=== PATIENT | female | born 1980 | race African-American/Black ===

== ENCOUNTER 2016-03-02 18:27 | Emergency (ER) | payer MEDICAID, OTHER ==
[~2016-03-02] VITALS: Ht 172.7 cm; Wt 100.0 kg
[~2016-03-02 18:27] MED LIST: OMEP20TA PO
[2016-03-02 18:29] VITALS: BP 151/74; PULSE 70; RESP 16; TEMP 98.2; O2SAT 100
[2016-03-02] MEDS ORDERED: PANT20 PO (18:37)
[2016-03-02] MEDS ORDERED: IBUP-232 PO (18:51)
[2016-03-02] MEDS ORDERED: ORPH100T99 PO (18:51)
--- NOTE | 2016-03-02 18:57 | PD ---
HPI Chief Complaint: Back/ Neck Pain or Injury Time Seen by Provider: 18:40 Travel History International Travel<30 days: No Contact w/Intl Traveler<30days: No Traveled to known affect area: No History of Present Illness HPI 35-year-old Afro-[place] female coming in with four-day history of right-sided posterior shoulder and neck discomfort. Patient states it started 4 days ago and has gotten progressively worse. She been trying heat and Tylenol with transient improvement. Patient denies any specific injury. Pain is 5/10, and feels like an ache with occasional spasm. She denies any radicular symptoms in the right arm or hand. He has no weakness. Patient denies fever, chills, or rash. She has no known drug allergies. PFSH Past Medical History Anemia: Yes Diminished Hearing: No Tetanus Vaccination: < 5 Years Influenza Vaccination: No ?: Not LMP: 02/28/15 : 4 Para: 2 Miscarriage: 1 Dilation and Curettage (D&C): Yes Past Surgical History Section: Yes (X 3) Gynecologic Surgery: Yes (C-SECT X 2) Other Surgery: Yes (anal fissure surgery) Social History Alcohol Use: No Tobacco Use: No Substance Use: No Allergies-Medications (Allergen,Severity, Reaction): Coded Allergies: No Known Allergies (Verified , 03/02/16) Reported Meds & Prescriptions Reported Meds & Active Scripts Active Reported Protonix (Pantoprazole Sodium) 20 Mg Tab 20 Mg PO DAILY Review of Systems Except as stated in HPI: all other systems reviewed are Neg General / Constitutional: No: Fever Eyes: No: Visual changes HENT: No: Headaches Cardiovascular: No: Chest Pain or Discomfort Respiratory: No: Shortness of Breath Gastrointestinal: No: Abdominal Pain Genitourinary: No: Dysuria Musculoskeletal: Positive: Myalgias, Pain (see history present illness.) Skin: No Rash Neurologic: No: Weakness Psychiatric: No: Depression Endocrine: No: Polydipsia Hematologic/Lymphatic: No: Easy Bruising Physical Exam Narrative GENERAL: Patient appears in no acute distress. SKIN: Warm and dry. HEAD: Atraumatic. Normocephalic. EYES: Pupils equal and round. No scleral icterus. No injection or drainage. ENT: No nasal bleeding or discharge. Mucous membranes pink and moist. Pharynx is normal. NECK: Trachea midline. No JVD. Patient has soft tissue tenderness along the right paraspinous muscles and scalenes. This extends into the right upper trapezius and medial scapularis. There is no bony tenderness or step-off. Range of motion is slightly limited by discomfort. CARDIOVASCULAR: Regular rate and rhythm. No murmurs gallops or rubs. RESPIRATORY: No accessory muscle use. Clear to auscultation. Breath sounds equal bilaterally. MUSCULOSKELETAL: Extremities without clubbing, cyanosis, or edema. No obvious deformities. Right upper extremity is of full range of motion bilaterally with no weakness appreciated. NEUROLOGICAL: Awake and alert. No obvious cranial nerve deficits. Motor grossly within normal limits. Five out of 5 muscle strength in the arms and legs. Normal speech. PSYCHIATRIC: Appropriate mood and affect; insight and judgment normal. Data Data Last Documented VS Vital Signs Date Time Temp Pulse Resp B/P Pulse Ox O2 Delivery O2 Flow Rate FiO2 03/02/16 18:29 98.2 70 16 151/74 100 Room Air MDM Medical Decision Making Medical Screen Exam Complete: Yes Emergency Medical Condition: Yes Differential Diagnosis Spasmodic torticollis. Muscle spasm. Cervical strain. Narrative Course Patient is medically stable at time of exam. Radiographic imaging is not felt warranted based on my history and physical. Patient will be treated conservatively with ibuprofen 600 mg 4 times a day, and Norflex 100 mg every 12 hours when necessary. Patient can take Tylenol extra strength every 6 hours as needed as well. Patient is to use heat followed by ice and gentle stretching as discussed. Patient should follow up with symptoms continue or worsen over the next week as discussed. Diagnosis Primary Impression: Torticollis, spasmodic Patient Instructions: Cervical Neck Strain Exercises (GEN), General Instructions, Spasmodic Torticollis (ED) Additional Instructions: Radiographic imaging is not felt warranted based on my history and physical. Patient will be treated conservatively with ibuprofen 600 mg 4 times a day, and Norflex 100 mg every 12 hours when necessary. Patient can take Tylenol extra strength every 6 hours as needed as well. Patient is to use heat followed by ice and gentle stretching as discussed. Patient should follow up with symptoms continue or worsen over the next week as discussed. Med/Other Pt SpecificInfo: Prescription(s) given Scripts Orphenadrine ER 12 HR (Orphenadrine CR)100 Mg [id number] Mg PO Q12HR #20 TAB Prov:Viel,Kaiden C. MD 03/02/16 Ibuprofen 600 Mg [id number] Mg PO Q6H PRN (Pain/Inflammation) #40 TAB Prov:Kaiden Dubon MD 03/02/16 Disposition: 01 DISCHARGE HOME Condition: Stable Antonio Sinha Mar 02, 2016 18:57
[2016-03-02] MEDS ORDERED: KETOROLAC TROMETHAMINE 60 MG/2 ML (IM) VIAL IM ONE (19:00)
[2016-03-02] MEDS ORDERED: ORPHENADRINE INJ 60 MG/2 ML AMP IM ONE (19:00)
== END 2016-03-02 19:24 | disposition home or self-care (01) ==
LOC: NEPC 18:27
DX: M43.6 Torticollis (principal)
CPT/HCPCS: 96372; 99283; J1885; J2360

== ENCOUNTER 2016-03-04 20:53 | Emergency (ER) | payer MEDICAID ==
[~2016-03-04] VITALS: Ht 172.7 cm; Wt 100.0 kg
[~2016-03-04 20:53] MED LIST changes: +IBUP-232 PO; -OMEP20TA PO; +ORPH100T99 PO; +PANT20 PO
[2016-03-04 20:56] VITALS: BP 147/70; PULSE 78; RESP 16; TEMP 98.3; O2SAT 99
--- NOTE | 2016-03-05 14:14 | EKG ---
Date Performed: 03/04/2016 Time Performed: 21:43:37 PTAGE: 35 years EKG: Sinus rhythm NORMAL ECG Since PREVIOUS TRACING , no significant change noted PREVIOUS TRACIN03/04/2015 16.11 DOCTOR: Leonides Mcgarry Interpretating Date/Time 03/05/2016 14:06:37
== END 2016-03-04 22:09 | disposition left against medical advice (07) ==
LOC: NED 20:53
DX: R07.9 Chest pain, unspecified (principal)
CPT/HCPCS: 93005; 99281

== ENCOUNTER 2016-04-01 08:29 | Emergency (ER) | payer MEDICAID ==
[~2016-04-01] VITALS: Ht 172.7 cm; Wt 102.0 kg
[2016-04-01 08:31] VITALS: BP 137/78; PULSE 80; RESP 16; TEMP 98.1; O2SAT 97
--- NOTE | 2016-04-01 09:17 | PD ---
HPI Chief Complaint: Headache Time Seen by Provider: 09:01 Travel History International Travel<30 days: No Contact w/Intl Traveler<30days: No Traveled to known affect area: No History of Present Illness HPI 35-year-old female presents to the emergency department with multiple complaints. Her first complaint is back and neck spasms for the last couple weeks with worsening over the past 4 days. The spasms radiate up both sides of her neck and up the back of her head. Denies injury, heavy lifting, straining. 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 She also reports decreased appetite for the last 4 days. Reports difficulty sleeping at night. Denies abdominal pain, nausea, vomiting. Reports feeling jittery at times; denies currently. Denies focal deficits or weakness. Denies headache, dizziness, confusion, disorientation, change in mentation. Denies fever, chills. Denies recent illness. Denies chest pain, heart palpitations, shortness of breath. Is concerned her thyroid levels are off. No known aggravating factors. Was seen here a couple weeks ago and was given an injection of a muscle relaxer which she said helped her neck and back for about a week. She was given a prescription for Norflex which she has not filled. Also has a prescription for Xanax for anxiety, which she hasn't taken. Has a primary care provider appointment at the end of March. History of anemia. No other modifying factors or associated signs and symptoms. PFSH Past Medical History Anemia: Yes Diminished Hearing: No LMP: 03/24/16 : 4 Para: 2 Miscarriage: 1 Dilation and Curettage (D&C): Yes Past Surgical History Section: Yes (X 3) Gynecologic Surgery: Yes (C-SECT X 2) Other Surgery: Yes (anal fissure surgery) Social History Alcohol Use: No Tobacco Use: No Substance Use: No Allergies-Medications (Allergen,Severity, Reaction): Coded Allergies: No Known Allergies (Verified , 04/01/16) Reported Meds & Prescriptions Reported Meds & Active Scripts Active Orphenadrine CR (Orphenadrine Citrate) 100 Mg Tab 100 Mg PO Q12HR Ibuprofen 600 Mg Tab 600 Mg PO Q6H PRN Reported Protonix (Pantoprazole Sodium) 20 Mg Tab 20 Mg PO DAILY Review of Systems Except as stated in HPI: all other systems reviewed are Neg Physical Exam Narrative GENERAL: Well-nourished, well-developed female patient, in no acute distress; afebrile, nontoxic-appearing SKIN: Warm and dry. HEAD: Atraumatic. Normocephalic. No facial droop noted. Tongue midline. EYES: Pupils equal and round at 3 mm with brisk reaction. No scleral icterus. No injection or drainage. PERRLA. EOMI. ENT: Mucosa pink and moist. No erythema or exudates. No uvular edema. No uvular , palatal, or tonsillar deviation. Airway patent. Nasal turbinates appear normal without nasal blood, purulent drainage or septal hematoma. EARS: Bilateral pinnae and external canals appear within normal limits. Bilateral tympanic membranes without erythema, dullness or perforation. NECK: Trachea midline. No lymphadenopathy. Active rotation of the neck greater than 45 to left and right. No midline tenderness on palpation of the cervical spine. Patient moving freely. CARDIOVASCULAR: Regular rate and rhythm. No murmur appreciated. RESPIRATORY: No accessory muscle use. Clear to auscultation. Breath sounds equal bilaterally. GASTROINTESTINAL: Abdomen soft, non-tender, nondistended. Hepatic and splenic margins not palpable. Bowel sounds are active 4 quadrants. MUSCULOSKELETAL: No obvious deformities. No clubbing. No cyanosis. No edema. BACK: No midline point tenderness on palpation of the cervical or thoracic spine. Reproducible tenderness to bilateral neck and in between the scapula and paraspinal thoracic area over the trapezius muscles. NEUROLOGICAL: Awake and alert. Oriented 3. No obvious cranial nerve deficits. Motor grossly within normal limits. Normal speech. No ataxia. No mid -line drift. Moves all extremities. 5/5 strength to all extremities. PSYCHIATRIC: Appropriate mood and affect; insight and judgment normal. Data Data Last Documented VS Vital Signs Date Time Temp Pulse Resp B/P Pulse Ox O2 Delivery O2 Flow Rate FiO2 04/01/16 08:31 98.1 80 16 137/78 97 Room Air Orders Orphenadrine Inj (Norflex Inj) (04/01/16 09:30) [facility] Medical Decision Making Medical Screen Exam Complete: Yes Emergency Medical Condition: Yes Medical Record Reviewed: Yes Differential Diagnosis Anxiety, muscle spasms, muscle cramping, stress, hypoglycemia Narrative Course 35-year-old female with multiple complaints. She is afebrile and nontoxic- appearing. She is in no acute distress. Her neuro exam is unremarkable. 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 She was previously seen for a similar complaint of muscle spasms in her back and was treated with Norflex which she said gave her relief for about a week. Has a prescription for Xanax at home. She has a prescription for Norflex that she was given at her last visit here and was here not filled. Norflex administered in the ER. Instructed patient to fill her prescription of Norflex and take as directed. Instructed patient to take Xanax as directed and as needed for anxiety. Patient has follow-up appointment with her primary care at the end of March; instructed patient to follow up with primary care at her scheduled appointment. She verbalized understanding and agreement with treatment plan. Patient is medically cleared and stable for discharge. Discussed reasons to return to the emergency department. Instructed patient to follow up with primary care provider. Patient agrees with treatment plan. The patients vital signs are stable and the patient is stable for outpatient follow- up and treatment. Patient discharged home, stable and in no acute distress. Diagnosis Primary Impression: Trapezius muscle spasm Referrals: Primary Care Physician Patient Instructions: General Instructions, Muscle Spasm (ED) Departure Forms: School Release, Return to School Date: Apr 02, 2016 Tests/Procedures Additional Instructions: Tylenol or ibuprofen as directed and as needed for pain Norflex as prescribed and as needed for muscle spasms Heating pad and/or ice to affected area to reduce pain Avoid aggravating activities; increase activity as tolerated Follow-up with primary care provider Return to emergency department immediately with worsening of symptoms Med/Other Pt SpecificInfo: No Change to Meds, No Meds Exist/No RX given Disposition: 01 DISCHARGE HOME Condition: Stable Elida Damon Apr 01, 2016 09:16
[2016-04-01] MEDS ORDERED: ORPHENADRINE INJ 60 MG/2 ML AMP IM ONE (09:30)
== END 2016-04-01 09:36 | disposition home or self-care (01) ==
LOC: NEPB 08:29
DX: M62.838 Other muscle spasm (principal); M62.830 Muscle spasm of back; Z86.2 Personal history of diseases of the blood and blood-forming organs and certain disorders involving the immune mechanism
CPT/HCPCS: 96372; 99283; J2360

== ENCOUNTER 2016-04-20 13:53 | Emergency (ER) | payer MEDICAID ==
[~2016-04-20] VITALS: Ht 172.7 cm; Wt 97.5 kg
[2016-04-20 13:56] VITALS: BP 132/81; PULSE 76; RESP 20; TEMP 98.2; O2SAT 100
[2016-04-20 14:50] LABS: BASOPHIL % 0.8 % (0.0-2.0); HEMATOCRIT 34.9 % (35.0-46.0); HEMO FLAGS DIFF FINAL; LYMPH % 22.8 % (9.0-44.0); LYMPHOCYTE # 0.7 TH/MM3 (1.0-4.8); MEAN CELL VOLUME 85.1 FL (80.0-100.0); MEAN CORPUSCULAR HEMOGLOBIN 27.6 PG (27.0-34.0); MEAN CORPUSCULAR HGB CONC 32.4 % (32.0-36.0); MONO % 12.5 % (0.0-8.0); NEUT % 62.9 % (16.0-70.0); PLATELET COUNT 296 TH/MM3 (150-450); RED CELL DISTRIBUTION WIDTH 13.4 % (11.6-17.2); WHITE BLOOD COUNT 3.1 TH/MM3 (4.0-11.0)
[2016-04-20 15:10] LABS: BICARBONATE 27.4 MEQ/L (21.0-32.0); POTASSIUM 3.7 MEQ/L (3.5-5.1)
--- NOTE | 2016-04-20 15:16 | PD ---
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 Patient reports she is feeling very anxious. She is up all night and can't sleep. She feels like her thoughts are racing. She says she's lost over 20 pounds in the past several months. She doesn't know if she has anxiety but she is just worried something stronger than this is unlike her. PFSH Past Medical History Hx Anticoagulant Therapy: No Anemia: Yes Cardiovascular Problems: No Chemotherapy: No Cerebrovascular Accident: No Diabetes: No Diminished Hearing: No Respiratory: No Tetanus Vaccination: < 5 Years ?: Not LMP: 03/31/16 : 4 Para: 2 Miscarriage: 1 Dilation and Curettage (D&C): Yes Past Surgical History Section: Yes (X 3) Gynecologic Surgery: Yes (C-SECT X 2) Hysterectomy: No Other Surgery: Yes (anal fissure surgery) Social History Alcohol Use: No Tobacco Use: No Substance Use: No Allergies-Medications (Allergen,Severity, Reaction): Coded Allergies: No Known Allergies (Verified , 04/20/16) Reported Meds & Prescriptions Reported Meds & Active Scripts Active No Active Prescriptions or Reported Medications Review of Systems Except as stated in HPI: all other systems reviewed are Neg Physical Exam Narrative GENERAL:Well appearing, no acute distress SKIN: Warm and dry. HEAD: Atraumatic. Normocephalic. EYES: Pupils equal and round. No injection or drainage. ENT: Moist mucous membranes NECK: Trachea midline. CARDIOVASCULAR: Regular rate and rhythm. No murmur appreciated. RESPIRATORY: Clear to auscultation. Breath sounds equal bilaterally. GASTROINTESTINAL: Abdomen soft, non-tender, nondistended. MUSCULOSKELETAL: No obvious deformities. NEUROLOGICAL: Awake and alert. No obvious cranial nerve deficits. Moving all extremities. PSYCHIATRIC: Appropriate mood and affect; insight and judgment normal. Data Data Last Documented VS Vital Signs Date Time Temp Pulse Resp B/P Pulse Ox O2 Delivery O2 Flow Rate FiO2 04/20/16 13:56 98.2 76 20 132/81 100 Room Air Orders Complete Blood Count With Diff (04/20/16 14:20) Basic Metabolic Panel (Bmp) (04/20/16 14:20) Thyroid Stimulating Hormone (04/20/16 14:20) Electrocardiogram (04/20/16 ) Labs Laboratory Tests Test 04/20/16 14:28 White Blood Count 3.1 TH/MM3 Red Blood Count 4.10 MIL/MM3 Hemoglobin 11.3 GM/DL Hematocrit 34.9 % Mean Corpuscular Volume 85.1 FL Mean Corpuscular Hemoglobin 27.6 PG Mean Corpuscular Hemoglobin 32.4 % Concent Red Cell Distribution Width 13.4 % Platelet Count 296 TH/MM3 Mean Platelet Volume 7.6 FL Neutrophils (%) (Auto) 62.9 % Lymphocytes (%) (Auto) 22.8 % Monocytes (%) (Auto) 12.5 % Eosinophils (%) (Auto) 1.0 % Basophils (%) (Auto) 0.8 % Neutrophils # (Auto) 2.0 TH/MM3 Lymphocytes # (Auto) 0.7 TH/MM3 Monocytes # (Auto) 0.4 TH/MM3 Eosinophils # (Auto) 0.0 TH/MM3 Basophils # (Auto) 0.0 TH/MM3 CBC Comment DIFF FINAL Differential Comment Sodium Level 141 MEQ/L Potassium Level 3.7 MEQ/L Chloride Level 107 MEQ/L Carbon Dioxide Level 27.4 MEQ/L Anion Gap 7 MEQ/L Blood Urea Nitrogen 11 MG/DL Creatinine 0.79 MG/DL Estimat Glomerular Filtration 100 ML/MIN Rate Random Glucose 94 MG/DL Calcium Level 9.0 MG/DL Thyroid Stimulating Hormone 0.691 uIU/ML 3rd Gen [facility] Medical Decision Making Medical Screen Exam Complete: Yes Emergency Medical Condition: Yes Interpretation(s) Afebrile, no tachycardia, normotensive Mild leukopenia Monocytic shift Electrolytes are reassuring TSH is normal Differential Diagnosis Arrhythmia, pericarditis, hyperthyroidism, acute coronary syndrome Narrative Course This is a 35-year-old female who presents to the emergency department with intermittent chest pains, anxiety, weight loss and not feeling right. She was placed with walking improved with IV was established. Labs are obtained which were reassuring including a normal TSH. I think the patient is safe to follow- up with a primary care physician. I don't think this reflects an acute coronary syndrome as her chest pain lasts for seconds at a time, is atypical, and she has no risk factors for ACS. Patient was discharged home. Diagnosis Primary Impression: Anxiety Patient Instructions: General Instructions Additional Instructions: If you develop severe chest pain, shortness of breath, sweating, lightheadedness , dizziness or difficulty breathing return to the emergency department immediately. Followup with your primary care physician in 2-3 days if your symptoms are not resolved. Med/Other Pt SpecificInfo: No Change to Meds Scripts No Active Prescriptions or Reported Meds Disposition: 01 DISCHARGE HOME Condition: Stable Leigh Hester MD Apr 20, 2016 15:16
--- NOTE | 2016-04-20 20:42 | EKG ---
Date Performed: 04/20/2016 Time Performed: 15:26:04 PTAGE: 35 years EKG: Sinus rhythm NORMAL ECG No significant change from PREVIOUS TRACING noted. PREVIOUS TRACIN03/04/2016 21.43 DOCTOR: Yung Robert Interpretating Date/Time 04/20/2016 20:40:22
== END 2016-04-20 15:45 | disposition home or self-care (01) ==
LOC: NEPC 13:53
DX: F41.9 Anxiety disorder, unspecified (principal); D64.9 Anemia, unspecified
CPT/HCPCS: 80048; 84443; 85025; 93005

== ENCOUNTER 2017-03-08 13:20 | Observation (INO) | payer MEDICAID ==
[~2017-03-08] VITALS: Ht 172.7 cm; Wt 93.0 kg
[2017-03-08 13:22] VITALS: BP 152/84; PULSE 78; RESP 16; TEMP 99.1; O2SAT 100
[2017-03-08 15:00] LABS: AUTOMATED NEUTROPHIL # 1.9 TH/MM3 (1.8-7.7); BASOPHIL % 0.6 % (0.0-2.0); EOSINOPHIL % 0.5 % (0.0-4.0); HEMATOCRIT 31.6 % (35.0-46.0); HEMOGLOBIN 10.3 GM/DL (11.6-15.3); LYMPH % 22.8 % (9.0-44.0); LYMPHOCYTE # 0.7 TH/MM3 (1.0-4.8); MEAN CORPUSCULAR HEMOGLOBIN 26.7 PG (27.0-34.0); MEAN CORPUSCULAR HGB CONC 32.5 % (32.0-36.0); MEAN PLATELET VOLUME 7.5 FL (7.0-11.0); MONO % 14.7 % (0.0-8.0); MONOCYTE # 0.4 TH/MM3 (0-0.9); NEUT % 61.4 % (16.0-70.0); PLATELET COUNT 386 TH/MM3 (150-450); RED BLOOD COUNT 3.85 MIL/MM3 (4.00-5.30); RED CELL DISTRIBUTION WIDTH 14.3 % (11.6-17.2); WHITE BLOOD COUNT 3.1 TH/MM3 (4.0-11.0)
--- NOTE | 2017-03-08 15:01 | RADRPT ---
EXAM DATE/TIME: 03/08/2017 14:44 [facility] COMPARISON: CHEST PA & LAT, March 04, 2015, 16:39. INDICATIONS : Chest Pain for one day MEDICAL HISTORY : None. SURGICAL HISTORY : None. ENCOUNTER: Subsequent ACUITY: 1 day PAIN SCORE: 3/10 LOCATION: Bilateral chest FINDINGS: PA and lateral views of the chest demonstrate the lungs to be symmetrically aerated without evidence of mass, infiltrate or effusion. The cardiomediastinal contours are unremarkable. Osseous structure s are intact. CONCLUSION: No acute disease. Shan Lee MD on March 08, 2017 at 14:58 Board Certified Radiologist. This report was verified electronically.
[2017-03-08 15:22] LABS: BICARBONATE 26.5 MEQ/L (21.0-32.0); BLOOD UREA NITROGEN 10 MG/DL (7-18); CALCIUM 8.9 MG/DL (8.5-10.1); CHLORIDE 106 MEQ/L (98-107); CREATININE 0.77 MG/DL (0.50-1.00); GLOMERULAR FILTRATION RATE 102 ML/MIN (>89); GLUCOSE,RANDOM 83 MG/DL (74-106); SODIUM (NA) 140 MEQ/L (136-145)
[2017-03-08 15:25] LABS: TROPONIN I LESS THAN 0.02 NG/ML (0.02-0.05)
[2017-03-08] MEDS ORDERED: ASPIRIN 325 MG TAB PO ONE (15:45)
[2017-03-08] MEDS ORDERED: ALUMINUM/MAGNESIUM/SIMETH 30 ML CUP PO ONE (15:45)
[2017-03-08] MEDS: NITROGLYCERIN 0.4 MG SL 25 TABS/BTL SL SCH ×3 (15:45→15:55)
[2017-03-08] MEDS ORDERED: LIDOCAINE VISCOUS 2% SOLN 15 ML UDC PO ONE (15:45)
--- NOTE | 2017-03-08 16:20 | PD ---
HPI Chief Complaint: Chest Pain Time Seen by Provider: 15:43 Travel History International Travel<30 days: No Contact w/Intl Traveler<30days: No Traveled to known affect area: No History of Present Illness HPI 36-year-old female complains of a chest squeezing sensation was started at rest yesterday. Minimal shortness of breath accompanied her walk to the ER from her parking lot space. Now there is no radiation of pain. Location is right in the epigastrium as well as portion of the retrosternal chest. She's had no fever. No similar prior episodes. No history of diabetes of hypertension hyperlipidemia or smoking. No family history coronary artery disease. No similar prior episodes. Patient's a history of hiatal hernia and thinks maybe it's related but is not sure. PFSH Past Medical History Hx Anticoagulant Therapy: No Anemia: Yes Cardiovascular Problems: No Chemotherapy: No Cerebrovascular Accident: No Diabetes: No Diminished Hearing: No Respiratory: No ?: Not : 4 Para: 2 Miscarriage: 1 Dilation and Curettage (D&C): Yes Past Surgical History Section: Yes (X 3) Gynecologic Surgery: Yes (C-SECT X 2) Hysterectomy: No Other Surgery: Yes (anal fissure surgery) Social History Alcohol Use: No Tobacco Use: No Substance Use: No Allergies-Medications (Allergen,Severity, Reaction): Coded Allergies: No Known Allergies (Verified Adverse Reaction, Unknown, 03/08/17) Reported Meds & Prescriptions Reported Meds & Active Scripts Active No Active Prescriptions or Reported Medications Review of Systems Except as stated in HPI: all other systems reviewed are Neg General / Constitutional: No: Fever Physical Exam Narrative GENERAL: 36-year-old female pleasant well-nourished well-developed SKIN: Warm and dry. HEAD: Atraumatic. Normocephalic. EYES: Pupils equal and round. No scleral icterus. No injection or drainage. ENT: No nasal bleeding or discharge. Mucous membranes pink and moist. NECK: Trachea midline. No JVD. CARDIOVASCULAR: Regular rate and rhythm. RESPIRATORY: No accessory muscle use. Clear to auscultation. Breath sounds equal bilaterally. GASTROINTESTINAL: Abdomen soft, non-tender, nondistended. Hepatic and splenic margins not palpable. MUSCULOSKELETAL: Extremities without clubbing, cyanosis, or edema. No obvious deformities. NEUROLOGICAL: Awake and alert. No obvious cranial nerve deficits. Motor grossly within normal limits. Five out of 5 muscle strength in the arms and legs. Normal speech. PSYCHIATRIC: Appropriate mood and affect; insight and judgment normal. Data Data Last Documented VS Vital Signs Date Time Temp Pulse Resp B/P (MAP) Pulse Ox O2 Delivery O2 Flow Rate FiO2 03/08/17 13:22 99.1 78 16 152/84 (106) 100 Room Air Vital signs reviewed Orders Orders Electrocardiogram (03/08/17 14:25) Complete Blood Count With Diff (03/08/17 14:25) Basic Metabolic Panel (Bmp) (03/08/17 14:25) Ckmb (Isoenzyme) Profile (03/08/17 14:25) Troponin I (03/08/17 14:25) Chest, Pa & Lat (03/08/17 14:25) CKMB (03/08/17 14:25) CKMB% (03/08/17 14:25) Aspirin (Aspirin) (03/08/17 15:45) Nitroglycerin Sl (Nitrostat Sl) (03/08/17 15:45) Al-Mag Hy-Si 40-40-4 Mg/Ml Liq (Mag-Al P (03/08/17 15:45) Lidocaine 2% Viscous (Xylocaine 2% Visco (03/08/17 15:45) Labs Laboratory Tests Test 03/08/17 14:25 White Blood Count 3.1 TH/MM3 Red Blood Count 3.85 MIL/MM3 Hemoglobin 10.3 GM/DL Hematocrit 31.6 % Mean Corpuscular Volume 82.0 FL Mean Corpuscular Hemoglobin 26.7 PG Mean Corpuscular Hemoglobin Concent 32.5 % Red Cell Distribution Width 14.3 % Platelet Count 386 TH/MM3 Mean Platelet Volume 7.5 FL Neutrophils (%) (Auto) 61.4 % Lymphocytes (%) (Auto) 22.8 % Monocytes (%) (Auto) 14.7 % Eosinophils (%) (Auto) 0.5 % Basophils (%) (Auto) 0.6 % Neutrophils # (Auto) 1.9 TH/MM3 Lymphocytes # (Auto) 0.7 TH/MM3 Monocytes # (Auto) 0.4 TH/MM3 Eosinophils # (Auto) 0.0 TH/MM3 Basophils # (Auto) 0.0 TH/MM3 CBC Comment DIFF FINAL Differential Comment Blood Urea Nitrogen 10 MG/DL Creatinine 0.77 MG/DL Random Glucose 83 MG/DL Calcium Level 8.9 MG/DL Sodium Level 140 MEQ/L Potassium Level 3.6 MEQ/L Chloride Level 106 MEQ/L Carbon Dioxide Level 26.5 MEQ/L Anion Gap 8 MEQ/L Estimat Glomerular Filtration Rate 102 ML/MIN Total Creatine Kinase 136 U/L Creatine Kinase MB LESS THAN 0.5 NG/ML Troponin I LESS THAN 0.02 NG/ML MDM Medical Decision Making Medical Screen Exam Complete: Yes Emergency Medical Condition: Yes Differential Diagnosis NSTEMI, unstable angina, coronary vasospasm, PE, PTX, aortic dissection, pericarditis, myocarditis, endocarditis, PNA, esophageal disease, aneurysm, musculoskeletal etiologies, anxiety, cocaine/sympathomimetic abuse Narrative Course CBC & BMP Diagram 03/08/17 14:25 Calcium Level 8.9 Tn < 0.02 Last Impressions Chest X-Ray 03/08/17 1425 Signed Impressions: Service Date/Time: Wednesday, March 08, 2017 14:44 - CONCLUSION: No acute disease. Shan Lee MD Chest pain center protocol considered acceptable except for the patient with complaints such as this. Diagnosis Primary Impression: Chest pain Qualified Codes: R07.9 - Chest pain, unspecified Admitting Information Admitting Physician Requests: Observation Scripts No Active Prescriptions or Reported Meds Stan Winters MD Mar 08, 2017 16:20
[2017-03-08] MEDS ORDERED: ONDANSETRON HCL 4 MG/2 ML VIAL IV PUSH PRN (16:30)
[2017-03-08] MEDS ORDERED: ACETAMINOPHEN/HYDROcodone 325 MG/7.5 MG TAB PO PRN (16:30)
[2017-03-08] MEDS ORDERED: MORPHINE SULFATE 4 MG/ML INJ IV PUSH PRN (16:30)
[2017-03-08] MEDS ORDERED: SODIUM CHLORIDE 0.9% FLUSH 10 ML FLUSH IV FLUSH PRN (16:30)
[2017-03-08 16:32] VITALS: O2SAT 100
--- NOTE | 2017-03-08 17:31 | HHI.HP ---
HPI Primary Care Physician Ish Palm DO Chief Complaint Chest pressure History of Present Illness 36-year-old female with known iron deficiency anemia presents to emergency room for further evaluation of chest pressure. During work yesterday experience "chills" was able to continue working. Woke up around midnight to void and noted substernal chest tightness. Recently diagnosed with hiatal hernia, so she didn't think too much of this and fell back to sleep. Upon awakening continued to chest tightness noting discomfort changed to pressure with intermittent substernal squeezing. No radiation of pain. No associated symptoms of nausea, vomiting, or diaphoresis. Duration of chest pressure constant. Duration of squeezing seconds. Does not hurt to take a deep breath. No known precipitating factors. Laying on left side makes pain better. Able to lay flat but endorses sitting up makes pressure better. Denies any recent illness within the past 6 weeks. No history of recent travel, PE, or DVT. She planned to take her youngest son to [employer] this afternoon, but while walking in parking lot of [employer] experienced slight dyspnea. 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 Review of Systems General: No fatigue,weakness, fever, chills, recent illness, or change in appetite. Has been her general state of health. 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 HEENT: No MORRELL, no vision changes, no nasal congestion or drainage, no dysphasia CV: Continues to have chest pressure as stated above. No palpitations or dizziness. RESP: Slight dyspnea with exertion. No cough, wheeze, or recent URI. GI: No nausea, vomiting, bowel changes, diarrhea, constipation, pain, distention , melena, or blood in the stool. Intentional weight loss of 45 pounds. : No dysuria, urgency, frequency, or frequent UTI. Last menses 02/25/17, denies chance of EXT: No lower leg edema, no paraesthesias MS: No discomfort, change in ROM, recent injury, or known trauma. NEURO: No change in memory, difficulty with balance, LOC, motor/sensory deficits PSYCH: No anxiety, depression, SKIN: No rashes, no concerning lesions Past Family Social History Allergies: Coded Allergies: No Known Allergies (Verified Adverse Reaction, Unknown, 03/08/17) Past Medical History Iron deficiency anemia, hiatal hernia Past Surgical History 3 Reported Medications Reported Meds & Active Scripts Active No Active Prescriptions or Reported Medications Active Ordered Medications Current Medications Medications (Trade) Dose Ordered Sig/Kade Route Start Time Stop Time Status Last Admin (NS Flush) 2 ml UNSCH PRN IV FLUSH 03/08/17 16:30 (NS Flush) 2 ml BID IV FLUSH 03/08/17 21:00 ([place] 7.5-325 Mg) 1 tab Q4H PRN PO 03/08/17 16:30 (Morphine Inj) 2 mg Q4H PRN IV PUSH 03/08/17 16:30 (Zofran Inj) 4 mg Q6H PRN IV PUSH 03/08/17 16:30 Family History Positive for early onset cardiovascular disease. Mother cardiac stent placed age 46. Social History No known diabetes, hypertension, or hyperlipidemia. Lifelong nonsmoker. Denies any alcohol or illegal drug use. 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 Past cardiac testing None Physical Exam Vital Signs Vital Signs Date Time Temp Pulse Resp B/P (MAP) Pulse Ox O2 Delivery O2 Flow Rate FiO2 03/08/17 16:32 100 21 03/08/17 13:22 99.1 78 16 152/84 (106) 100 Room Air Physical Exam GENERAL: Alert WN, WD, NAD, pleasant, female HEAD: NC, AT EYES: Sclera clear, conjunctiva without injection ENT: Mucous membranes pink and moist NECK: Supple, no masses, trachea midline CV: RRR, without murmur, rub, gallop, no JVD, S1-S2 no S3-S4. Chest wall nontender with palpation RESP: Clear lungs throughout bilateral, no crackles, wheeze, rhonchi, symmetrical chest rise, nonlabored, able to speak in full sentences ABD: Soft, NT, ND, no masses, positive bowel tones EXT: Pulses +24, no dependent edema MS: Normal tone 4 extremities, no obvious deformities, full range of motion NEURO: CN II through CN XII grossly intact, motor strength 5/5 PSYCH: A+O 3, pleasant affect, appropriate speech, mood, insight and judgment SKIN: Normal turgor, normal texture, no lesions, no rashes, tattoo Laboratory Laboratory Tests Test 03/08/17 14:25 White Blood Count 3.1 Red Blood Count 3.85 Hemoglobin 10.3 Hematocrit 31.6 Mean Corpuscular Volume 82.0 Mean Corpuscular Hemoglobin 26.7 Mean Corpuscular Hemoglobin Concent 32.5 Red Cell Distribution Width 14.3 Platelet Count 386 Mean Platelet Volume 7.5 Neutrophils (%) (Auto) 61.4 Lymphocytes (%) (Auto) 22.8 Monocytes (%) (Auto) 14.7 Eosinophils (%) (Auto) 0.5 Basophils (%) (Auto) 0.6 Neutrophils # (Auto) 1.9 Lymphocytes # (Auto) 0.7 Monocytes # (Auto) 0.4 Eosinophils # (Auto) 0.0 Basophils # (Auto) 0.0 CBC Comment DIFF FINAL Differential Comment Blood Urea Nitrogen 10 Creatinine 0.77 Random Glucose 83 Calcium Level 8.9 Sodium Level 140 Potassium Level 3.6 Chloride Level 106 Carbon Dioxide Level 26.5 Anion Gap 8 Estimat Glomerular Filtration Rate 102 Total Creatine Kinase 136 Creatine Kinase MB LESS THAN 0.5 Troponin I LESS THAN 0.02 Result Diagram: 03/08/17 1425 03/08/17 142 Imaging Last 48 hours Impressions Chest X-Ray 03/08/17 142 Signed Impressions: Service Date/Time: Wednesday, March 08, 2017 14:44 - CONCLUSION: No acute disease. Shan Lee MD Course EKG Normal sinus rhythm, normal axis, no ST or T-segment changes Caprini VTE Risk Assessment Caprini VTE Risk Assessment: No/Low Risk (score <= 1) Caprini Risk Assessment Model Point Value = 1 Point Value = 2 Point Value = 3 Point Value = 5 Age 41-60 Minor surgery BMI > 25 kg/m2 Swollen legs Varicose veins or History of unexplained or recurrent spontaneous Oral contraceptives or hormone replacement Sepsis (< 1 month) Serious lung disease, including pneumonia (< 1 month) Abnormal pulmonary function Acute myocardial infarction Congestive heart failure (< 1 month) History of inflammatory bowel disease Medical patient at bed rest Age 61-74 Arthroscopic surgery Major open surgery (> 45 min) Laparoscopic surgery (> 45 min) Malignancy Confined to bed (> 72 hours) Immobilizing plaster cast Central venous access Age >= 75 History of VTE Family history of VTE Factor V Leiden Prothrombin [id number] Lupus anticoagulant Anticardiolipin antibodies Elevated serum homocysteine Heparin-induced thrombocytopenia Other congenital or acquired thrombophilia Stroke (< 1 month) Elective arthroplasty Hip, pelvis, or leg fracture Acute spinal cord injury (< 1 month) Prophylaxis Regimen Total Risk Factor Score Risk Level Prophylaxis Regimen 0-1 Low Early ambulation 2 Moderate Order ONE of the following: *Sequential Compression Device (SCD) *Heparin 5000 units SQ BID 3-4 Higher Order ONE of the following medications: *Heparin 5000 units SQ TID *Enoxaparin/Lovenox 40 mg SQ daily (WT < 150 kg, CrCl > 30 mL/min) *Enoxaparin/Lovenox 30 mg SQ daily (WT < 150 kg, CrCl > 10-29 mL/min) *Enoxaparin/Lovenox 30 mg SQ BID (WT < 150 kg, CrCl > 30 mL/min) AND/OR *Sequential Compression Device (SCD) 5 or more Highest Order ONE of the following medications: *Heparin 5000 units SQ TID (Preferred with Epidurals) *Enoxaparin/Lovenox 40 mg SQ daily (WT < 150 kg, CrCl > 30 mL/min) *Enoxaparin/Lovenox 30 mg SQ daily (WT < 150 kg, CrCl > 10-29 mL/min) *Enoxaparin/Lovenox 30 mg SQ BID (WT < 150 kg, CrCl > 30 mL/min) AND *Sequential Compression Device (SCD) Assessment and Plan Assessment and Plan #1 Atypical chest pain-admitted chest pain center. Rule out with 3 sets of EKGs , cardiac enzymes, monitor overnight. Will be seen and evaluated by Dr. Jluis Penny in a.m. Discussed possible stress testing, this will be determined after evaluation by last sorter. Patient agreeable plan of care. Telma Artis Mar 08, 2017 17:31
[2017-03-08 18:53] LABS: TROPONIN I LESS THAN 0.02 NG/ML (0.02-0.05)
[2017-03-08 20:00] VITALS: BP 133/88; PULSE 80; RESP 18; TEMP 96.1; O2SAT 100
[2017-03-08] MEDS ORDERED: SODIUM CHLORIDE 0.9% FLUSH 10 ML FLUSH IV FLUSH SCH (21:00)
[2017-03-08 21:17] LABS: TROPONIN I LESS THAN 0.02 NG/ML (0.02-0.05)
[2017-03-08 21:40] VITALS: PULSE 74
[2017-03-09] VITALS (7 sets, daily range): BP systolic 121–136; BP diastolic 60–81; PULSE 66–85; RESP 18–20; TEMP 96.1–97.6; O2SAT 96–100
--- NOTE | 2017-03-09 08:02 | PD.CARD.PN ---
Subjective Subjective Remarks No complaints overnight. Chest pressure resolved quickly after receiving GI cocktail last evening. Objective Medications Current Medications Medications (Trade) Dose Ordered Sig/Kade Route Start Time Stop Time Status Last Admin (NS Flush) 2 ml UNSCH PRN IV FLUSH 03/08/17 16:30 (NS Flush) 2 ml BID IV FLUSH 03/08/17 21:00 03/08/17 22:50 ([employer] [employer] 7.5-325 Mg) 1 tab Q4H PRN PO 03/08/17 16:30 (Morphine Inj) 2 mg Q4H PRN IV PUSH 03/08/17 16:30 (Zofran Inj) 4 mg Q6H PRN IV PUSH 03/08/17 16:30 Vital Signs / I&O Vital Signs Date Time Temp Pulse Resp B/P (MAP) Pulse Ox O2 Delivery O2 Flow Rate FiO2 03/09/17 07:27 66 03/09/17 04:43 96.3 79 18 121/68 (85) 100 03/09/17 04:03 68 03/09/17 02:49 21 03/09/17 00:01 67 03/09/17 00:00 96.1 85 18 136/81 (99) 99 03/08/17 21:40 74 03/08/17 20:00 96.1 80 18 133/88 (103) 100 03/08/17 18:32 03/08/17 16:32 100 21 03/08/17 15:30 Room Air 03/08/17 13:22 99.1 78 16 152/84 (106) 100 Room Air I/O 03/08/17 03/08/17 03/08/17 03/09/17 03/09/17 03/09/17 07:00 15:00 23:00 07:00 15:00 23:00 Intake Total 360 ml Balance 360 ml Intake Oral 360 ml # Voids 2 Physical Exam GENERAL: Alert WN, WD, NAD, pleasant, female HEAD: NC, AT CV: RRR, without murmur, rub, gallop, no JVD, S1-S2 no S3-S4. RESP: Clear lungs throughout bilateral, no crackles, wheeze, rhonchi, symmetrical chest rise, nonlabored, able to speak in full sentences ABD: Soft, NT, ND, no masses, positive bowel tones PSYCH: A+O 3, pleasant affect, appropriate speech Laboratory Laboratory Tests Test 03/08/17 14:25 03/08/17 18:05 03/08/17 20:30 White Blood Count 3.1 TH/MM3 Red Blood Count 3.85 MIL/MM3 Hemoglobin 10.3 GM/DL Hematocrit 31.6 % Mean Corpuscular Volume 82.0 FL Mean Corpuscular Hemoglobin 26.7 PG Mean Corpuscular Hemoglobin Concent 32.5 % Red Cell Distribution Width 14.3 % Platelet Count 386 TH/MM3 Mean Platelet Volume 7.5 FL Neutrophils (%) (Auto) 61.4 % Lymphocytes (%) (Auto) 22.8 % Monocytes (%) (Auto) 14.7 % Eosinophils (%) (Auto) 0.5 % Basophils (%) (Auto) 0.6 % Neutrophils # (Auto) 1.9 TH/MM3 Lymphocytes # (Auto) 0.7 TH/MM3 Monocytes # (Auto) 0.4 TH/MM3 Eosinophils # (Auto) 0.0 TH/MM3 Basophils # (Auto) 0.0 TH/MM3 CBC Comment DIFF FINAL Differential Comment Blood Urea Nitrogen 10 MG/DL Creatinine 0.77 MG/DL Random Glucose 83 MG/DL Calcium Level 8.9 MG/DL Sodium Level 140 MEQ/L Potassium Level 3.6 MEQ/L Chloride Level 106 MEQ/L Carbon Dioxide Level 26.5 MEQ/L Anion Gap 8 MEQ/L Estimat Glomerular Filtration Rate 102 ML/MIN Total Creatine Kinase 136 U/L 125 U/L 114 U/L Creatine Kinase MB LESS THAN 0.5 NG/ML LESS THAN 0.5 NG/ML LESS THAN 0.5 NG/ML Troponin I LESS THAN 0.02 NG/ML LESS THAN 0.02 NG/ML LESS THAN 0.02 NG/ML Imaging Last 24 hours Impressions Chest X-Ray 03/08/17 1425 Signed Impressions: Service Date/Time: Wednesday, March 08, 2017 14:44 - CONCLUSION: No acute disease. Shan Lee MD Assessment and Plan Assessment and Plan #1 Atypical chest pain-admitted chest pain center. Rule out with 3 sets of EKGs , cardiac enzymes, monitor overnight. Will been seen by Dr. Penny this morning. Further disposition to follow. Telma Artis Mar 09, 2017 08:02
[2017-03-09] MEDS ORDERED: OMEP20TA93 PO (10:04)
--- NOTE | 2017-03-09 10:05 | HHI.DCPOC ---
Discharge Care Plan Diagnosis: (1) Atypical chest pain (2) GERD (gastroesophageal reflux disease) Goals to Promote Your Health * To prevent worsening of your condition and complications * To maintain your health at the optimal level Directions to Meet Your Goals Take your medications as prescribed Follow your dietary instruction Follow activity as directed Keep your appointments as scheduled Take your immunizations and boosters as scheduled If your symptoms worsen call your PCP, if no PCP go to Urgent Care Center or Emergency Room Smoking is Dangerous to Your Health. Avoid second hand smoke Call the 24-hour hour crisis hotline for domestic abuse at Telma Artis Mar 09, 2017 10:05
--- NOTE | 2017-03-09 15:36 | EKG ---
Date Performed: 03/08/2017 Time Performed: 18:33:37 PTAGE: 36 years EKG: Sinus rhythm LOW QRS VOLTAGE IN PRECORDIAL LEADS BORDERLINE ECG NO SIG CHANGE PREVIOUS TRACING : 03/08/2017 14.34 DOCTOR: Jluis Penny Interpretating Date/Time 03/09/2017 15:36:03
--- NOTE | 2017-03-09 15:36 | EKG ---
Date Performed: 03/08/2017 Time Performed: 22:56:57 PTAGE: 36 years EKG: Sinus rhythm SEPTAL MYOCARDIAL INFARCTION ABNORMAL ECG NO SIG CHANGE PREVIOUS TRACING : 03/08/2017 22.56 DOCTOR: Jluis Penny Interpretating Date/Time 03/09/2017 15:34:55
--- NOTE | 2017-03-09 15:38 | EKG ---
Date Performed: 03/08/2017 Time Performed: 14:34:12 PTAGE: 36 years EKG: Sinus rhythm NORMAL ECG NO SIG CHANGE PREVIOUS TRACING : 04/20/2016 15.26 DOCTOR: Jluis Penny Interpretating Date/Time 03/09/2017 15:36:35
--- NOTE | 2017-03-09 15:41 | TR ---
Date Performed: 03/09/2017 Time Performed: 09:41:52 DOCTOR: Jluis Penny DRUG LIST: CLINICAL HISTORY: CHEST PAIN REASON FOR TEST: Chest pain REASON FOR ENDING: OBSERVATION: CONCLUSION: Randall protocol completed. Stopped sec to exceeding target heart rate and leg fatigue . Maximum MB=579 Target HR Achieved=99.0% Maximum EW=995/90 Total Exercise Time=7:16. No reprod chest discomfort. No ectopy. No st segment changes to sugg ischemia. Good exercise tolerance. Normal bp re sponse. Recovery quick and unremarkable. COMMENTS:
== END 2017-03-09 11:43 | disposition home or self-care (01) ==
LOC: NEPD 13:20 → NEDA 16:27 → NEPHCDU 18:44
PROVIDERS: ADMIT Internal Medicine Interventional Cardiology; ATTEND Internal Medicine Interventional Cardiology
DX: R07.89 Other chest pain (principal); K21.9 Gastro-esophageal reflux disease without esophagitis; D50.9 Iron deficiency anemia, unspecified; R94.31 Abnormal electrocardiogram [ECG] [EKG]
CPT/HCPCS: 71046; 80048; 82550; 82552; 84484; 85025; 93005; 93017; 99285; G0378